=== PATIENT | male | born 1955 | race Caucasian/White ===

== ENCOUNTER 2018-03-19 08:40 | Emergency (ER) | payer OTHER, SELFPAY ==
--- NOTE | 2018-03-19 10:09 | CT ---
CT BRAIN WITHOUT CONTRAST: HISTORY: Injury, no loss of consciousness. Pain in the head. FINDINGS: No evidence of infarct, hemorrhage, midline shift, or abnormal extraaxial fluid collections are seen. The ventricular size is normal and the basilar cisterns patent. The bony calvarium is intact. The re is mucosal disease in the paranasal sinuses. IMPRESSION: No Ct evidence of acute intracranial process. POS: [facility]
--- NOTE | 2018-03-19 10:11 | RAD ---
LEFT SHOULDER: Comparison: None. History: Injury with left shoulder pain. FINDINGS: Three views of the left shoulder shows no evidence of acute fracture or dislocation. A small ossifica tion is seen at the insertion of the rotor cuff and greater tuberosity. The visualized left thorax is unremarkable. IMPRESSION: No evidence of acute abnormality. POS: [facility]
--- NOTE | 2018-03-19 10:42 | CT ---
CHEST CT SCAN WITHOUT IV CONTRAST: History: 63-year-old male with history of chest injury with pain to left chest wall. FINDINGS: There are nondisplaced fractures involving the left 6th, 7th, and 8th lateral ribs. No pneumothorax o r pleural effusion. No mediastinal hematoma. No pericardial effusion. Small hiatal hernia. Mild linea r stranding in the lung bases, possibly minimal subsegmental atelectasis. IMPRESSION: Three nondisplaced left rib fractures laterally without pneumothorax or pleural effusion. Minimal delicia ear stranding in the left base, probably mild subsegmental atelectasis. POS: [facility]
[2018-03-19 11:00] LABS: #Basophils 0.1 thou/uL (0.0-0.2); #Eosinphils 0.1 thou/uL (0.0-0.7); #Lymphocytes 1.7 thou/uL (1.20-3.40); #Monocytes 0.6 thou/uL (0.11-0.59); #Neutrophils 9.8 thou/uL (1.40-6.50); %Basophils 0.7 % (0.0-1.0); %Eosinophils 0.5 % (0.0-10.0); %Lymphocytes 13.7 % (21.0-51.0); %Monocytes 4.9 % (0.0-10.0); %Neutrophils 80.2 % (42.0-75.0); Hemoglobin 14.8 g/dL (14.0-18.0); Mean Corpuscular HGB CONC 33.3 g/dL (32.0-36.0); Mean Corpuscular Hemoglobin 28.5 pg (27.0-31.0); Mean Corpuscular Volume 85.5 fL (78.0-98.0); Mean Platelet Volume 6.6 fL (7.4-10.4); Platelet Count 234 thou/uL (130-400); RBC Distribution Width 11.7 % (11.5-14.5); Red Blood Cell (RBC) Count 5.19 mill/uL (4.70-6.10); White Blood Cell (WBC) Count 12.2 thou/uL (4.8-10.8)
[2018-03-19] MEDS ORDERED: Ondansetron PF 4 MG/2 ML Vial ONE (11:07)
[2018-03-19 11:10] LABS: INR-International Normal Ratio 0.9; Prothrombin Time 12.7 SEC (12.0-14.7)
[2018-03-19 11:19] LABS: ALT (SGPT) 38 U/L (8-55); AST (SGOT) 31 U/L (5-34); Albumin 4.5 g/dL (3.4-4.8); Alkaline Phosphatase 82 U/L (40-150); Anion Gap 15 mmol/L (10-20); BUN (Urea Nitrogen) 15 mg/dL (8.4-25.7); Bilirubin, Total 0.5 mg/dL (0.2-1.2); Calc. Creatinine Clearance 0 mL/min (70-130); Calcium 9.8 mg/dL (7.8-10.44); Carbon Dioxide 23 mmol/L (23-31); Chloride 105 mmol/L (98-107); Estimated GFR-MDRD Greater than 90; Globulin 3.4 g/dL (2.4-3.5); Glucose 115 mg/dL (80-115); Potassium 3.8 mmol/L (3.5-5.1); Protein, Total 7.9 g/dL (5.8-8.1); Sodium 139 mmol/L (136-145)
== END 2018-03-19 12:30 | disposition short-term general hospital (02) ==
LOC: NAV ERS 08:40
DX: S22.42XA Multiple fractures of ribs, left side, initial encounter for closed fracture (principal); S00.03XA Contusion of scalp, initial encounter; E78.5 Hyperlipidemia, unspecified; I10 Essential (primary) hypertension; Z79.899 Other long term (current) drug therapy; Z79.82 Long term (current) use of aspirin; W19.XXXA Unspecified fall, initial encounter
CPT/HCPCS: 70450; 71250; 80053; 85025; 85610; 96374; 96375; J1170; J2405